=== PATIENT | male | born 1980 | race Caucasian/White ===

== ENCOUNTER 2021-11-06 04:28 | Emergency (ER) | payer OTHER ==
[~2021-11-06] VITALS: Ht 193 cm; Wt 142.0 kg
[2021-11-06] MEDS ORDERED: fentaNYL INJ 100 MCG/2 ML AMP IVP STA (04:34)
--- NOTE | 2021-11-06 04:36 | ED Lower Extremity ---
General Chief Complaint: Lower Extremity Stated Complaint: LEFT LEG PAIN Source: patient, EMS History of Present Illness Date Seen by Provider: Nov 06, 2021 Time Seen by Provider: 04:28 Initial Comments PT ARRIVES VIA EMS FROM WORK AT [employer] PT WAS DRIVING A FORKLIFT, AND HAD HIS LEFT LEG HANGING OFF THE SIDE OF THE FORKLIFT AND HIS LEG GOT CAUGHT ON SOMETHING, AND PT ACCIDENTALLY ACCELERATED THE FORKLIFT, AND FELT A SNAP/POP IN LEFT MID LOWER LEG AND HAD IMMEDIATE PAIN TO HIS LEFT LOWER LEG. NO OPEN WOUNDS DID NOT FALL OFF THE FORKLIFT OR HAVE ANY OTHER INJURY FROM THE INCIDENT NO PARESTHESIAS OR MOTOR DEFICITS. EMS HAVE SPLINTED THE LOWER LEG PRIOR TO ARRIVAL EMS GAVE 150 MCG FENTANYL PRIOR TO ARRIVAL PT IS NON-INSULIN DEPENDENT DIABETIC ON METFORMIN NO HISTORY OF PERIPHERAL NEUROPATHY OR PERIPHERAL VASCULAR DISEASE PT HAS HAD COVID-19 VACCINE X 2--SOMETIME LAST YEAR. HAS NOT HAD BOOSTER. DENIES ANY COVID-19 SYMPTOMS OR KNOWN SICK CONTACTS. LAST FOOD INTAKE 2100 LAST LIQUID INTAKE 0200 PCP: [facility] Allergies and Home Medications Allergies Coded Allergies: No Known Drug Allergies (Unverified , 11/06/21) Patient Home Medication List Home Medication List Reviewed: Yes Review of Systems Constitutional: no symptoms reported Respiratory: no symptoms reported Cardiovascular: no symptoms reported Gastrointestinal: no symptoms reported Genitourinary: no symptoms reported Musculoskeletal: see HPI Skin: no symptoms reported Psychiatric/Neurological: No Symptoms Reported Past Memuvgo-Caxqeb-Xlwved Hx Patient Social History Tobacco Use?: Yes Tobacco type used: Cigarettes Smoking Status: Former Smoker Substance use?: No Alcohol Use?: Yes Alcohol Frequency: Couple times a week Past Medical History Surgeries: Yes (LEFT KNEE SCOPE AGE 17) Orthopedic Respiratory: No Cardiac: No Neurological: No Genitourinary: No Gastrointestinal: No Musculoskeletal: Yes (LEFT KNEE SCOPE AGE 17) Endocrine: Yes (OBESITY) Diabetes, Non-Insulin dep HEENT: No Cancer: No Psychosocial: No Integumentary: No Blood Disorders: No Physical Exam Vital Signs Vital Signs - First Documented 11/06/21 04:28 Temp 37.0 Pulse 109 Resp 18 B/P (MAP) 161/93 (115) Pulse Ox 96 O2 Delivery Room Air Capillary Refill : Height, Weight, BMI Height: '" Weight: lbs. oz. kg; BMI Method: General Appearance: WD/WN, no apparent distress, obese Cardiovascular: normal peripheral pulses, regular rate, rhythm, no murmur Respiratory: normal breath sounds Gastrointestinal: soft Hips: bilateral hip normal inspection Legs: right leg normal inspection; left leg other (TENDERNESS TO LEFT MID TIB- FIB AREA. DISTAL MOTOR/SENSORY/VASCULAR INTACT. ) Knees: bilateral knee normal inspection Ankles: bilateral ankle normal inspection Feet: bilateral foot normal inspection Neurologic/Tendon: normal sensation, normal motor functions, normal tendon functions Neurologic/Psychiatric: no motor/sensory deficits, alert, normal mood/affect, oriented x 3 Skin: normal color, warm/dry Procedures/Interventions Splinting and Joint Reduction : Pre-Proc Neuro Vasc Exam: normal Post-Proc Neuro Vasc Exam: normal Hand-Made Type: orthoglass Splint Application: Short Leg Progress/Results/Core Measures Results/Orders Lab Results Laboratory Tests Test 11/06/21 04:40 Range/Units White Blood Count 9.1 4.3-11.0 10^3/uL Red Blood Count 5.36 4.30-5.52 10^6/uL Hemoglobin 15.4 13.3-17.7 g/dL Hematocrit 47 40-54 % Mean Corpuscular Volume 87 80-99 fL Mean Corpuscular Hemoglobin 29 25-34 pg Mean Corpuscular Hemoglobin Concent 33 32-36 g/dL Red Cell Distribution Width 13.0 10.0-14.5 % Platelet Count 266 130-400 10^3/uL Mean Platelet Volume 9.9 9.0-12.2 fL Immature Granulocyte % (Auto) 1 % Neutrophils (%) (Auto) 64 42-75 % Lymphocytes (%) (Auto) 25 12-44 % Monocytes (%) (Auto) 7 0-12 % Eosinophils (%) (Auto) 3 0-10 % Basophils (%) (Auto) 1 0-10 % Neutrophils # (Auto) 5.8 1.8-7.8 10^3/uL Lymphocytes # (Auto) 2.3 1.0-4.0 10^3/uL Monocytes # (Auto) 0.7 0.0-1.0 10^3/uL Eosinophils # (Auto) 0.3 0.0-0.3 10^3/uL Basophils # (Auto) 0.1 0.0-0.1 10^3/uL Immature Granulocyte # (Auto) 0.1 0.0-0.1 10^3/uL Prothrombin Time 13.1 12.2-14.7 SEC INR Comment 1.0 0.8-1.4 Activated Partial Thromboplast Time 23 L 24-35 SEC Sodium Level 137 135-145 MMOL/L Potassium Level 3.6 3.6-5.0 MMOL/L Chloride Level 101 98-107 MMOL/L Carbon Dioxide Level 16 L 21-32 MMOL/L Anion Gap 20 H 5-14 MMOL/L Blood Urea Nitrogen 20 H 7-18 MG/DL Creatinine 1.16 0.60-1.30 MG/DL Estimat Glomerular Filtration Rate 82 BUN/Creatinine Ratio 17 Glucose Level 311 H 70-105 MG/DL Calcium Level 9.1 8.5-10.1 MG/DL Corrected Calcium 9.3 8.5-10.1 MG/DL Total Bilirubin 0.4 0.1-1.0 MG/DL Aspartate Amino Transf (AST/SGOT) 28 5-34 U/L Alanine Aminotransferase (ALT/SGPT) 46 0-55 U/L Alkaline Phosphatase 93 40-136 U/L Total Protein 7.1 6.4-8.2 GM/DL Albumin 3.8 3.2-4.5 GM/DL My Orders Orders - MOHAN SERVIN DO Ed Iv/Invasive Line Start (11/06/21 04:34) Monitor-Rhythm Ecg Trace Only (11/06/21 04:34) Tibia/Fibula, Right, 2 Views (11/06/21 04:34) Cbc With Automated Diff (11/06/21 04:34) Comprehensive Metabolic Panel (11/06/21 04:34) Protime With Inr (11/06/21 04:34) Partial Thromboplastin Time (11/06/21 04:34) Fentanyl Inj (Sublimaze Injection) (11/06/21 04:34) Ed Iv/Invasive Line Start (11/06/21 05:06) Ns Iv 1000 Ml (Sodium Chloride 0.9%) (11/06/21 05:15) Morphine Injection (Morphine Injection (11/06/21 05:15) Medications Given in ED Vital Signs/I&O 11/06/21 11/06/21 04:28 06:03 Temp 37.0 36.5 Pulse 109 111 Resp 18 16 B/P (MAP) 161/93 (115) 163/82 Pulse Ox 96 96 O2 Delivery Room Air Room Air Progress Progress Note : Progress Note GIVEN FENTANYL 100 MCG WITH SOME IMPROVEMENT IN PAIN GIVEN MORPHINE 4 MG WITH BETTER PAIN CONTROL NO DETERIORATION IN PT'S CONDITION DURING ER STAY Diagnostic Imaging Comments XRAYS LEFT TIB-FIB--COMMINUTED FRACTURES OF SHAFT OF TIBIA AND FIBULA--PENDING RADIOLOGIST REVIEW Reviewed: Reviewed by Me Departure Communication (Admissions) 0502--SPOKE WITH DR. AVILES, ORTHOPEDIC SURGEON GENERAL UTILITY MAINTENANCE REPAIRER. ADVISES TO ADMIT AND HAVE MEDICINE SERVICES CONSULTED 05--DR. AVILES CALLED BACK, HE HAS REVIEWED XRAYS, AND ADVISES TRANSFER TO [facility], FRACTURE WILL LIKELY REQUIRE MORE SPECIALIZED ORTHOPEDIC SURGERY THAN HE CAN PROVIDE. 05--[facility]. 05--SPOKE WITH DR. SCOTT, ORTHOPEDIC SURGEON, ADVISES TO SEND PT TO [facility] ER 0529--SPOKE WITH DR. RUBIO, ER PHYSICIAN, ACCEPTS PT FOR TRANSFER. NO ADDITIONAL RECOMMENDATIONS AT THIS TIME. [facility] HAVE BEEN CLOUDED TO [facility]. [facility] HEALTH STAFF MEMBER CONTACTED FOR DRUG SCREEN. Impression Primary Impression: CLOSED COMMINUTED FRACTURES SHAFT LEFT TIBIA AND FIBULA Additional Impression: NIDDM Disposition: 02 XFER SHT-TRM HOSP Condition: Stable Transfer Transfer Reason: Exceeds level of care Transfer Facility: [facility] Method of Transfer: EMS MOHAN SERVIN DO Nov 06, 2021 04:36
[2021-11-06 04:48] LABS: BASOPHILS # (AUTO) 0.1 10^3/uL (0.0-0.1); BASOPHILS % (AUTO) 1 % (0-10); EOSINOPHILS # (AUTO) 0.3 10^3/uL (0.0-0.3); EOSINOPHILS % (AUTO) 3 % (0-10); HEMATOCRIT 47 % (40-54); HEMOGLOBIN 15.4 g/dL (13.3-17.7); LYMPHOCYTES # (AUTO) 2.3 10^3/uL (1.0-4.0); LYMPHOCYTES % (AUTO) 25 % (12-44); MEAN CORPUSCULAR HEMOGLOBIN 29 pg (25-34); MEAN CORPUSCULAR HGB CONC 33 g/dL (32-36); MEAN CORPUSCULAR VOLUME 87 fL (80-99); MEAN PLATELET VOLUME 9.9 fL (9.0-12.2); MONOCYTES # (AUTO) 0.7 10^3/uL (0.0-1.0); MONOCYTES % (AUTO) 7 % (0-12); NEUTROPHILS # (AUTO) 5.8 10^3/uL (1.8-7.8); NEUTROPHILS % (AUTO) 64 % (42-75); PLATELET COUNT 266 10^3/uL (130-400); WHITE BLOOD COUNT 9.1 10^3/uL (4.3-11.0)
[2021-11-06 05:04] LABS: ALBUMIN 3.8 GM/DL (3.2-4.5); POTASSIUM 3.6 MMOL/L (3.6-5.0); PROTHROMBIN TIME PATIENT 13.1 SEC (12.2-14.7)
[2021-11-06 05:06] LABS: CALCIUM 9.1 MG/DL (8.5-10.1)
[2021-11-06 05:07] LABS: TOTAL PROTEIN 7.1 GM/DL (6.4-8.2)
[2021-11-06 05:09] LABS: BILIRUBIN,TOTAL 0.4 MG/DL (0.1-1.0)
[2021-11-06 05:10] LABS: CREATININE SERUM 1.16 MG/DL (0.60-1.30)
[2021-11-06] MEDS ORDERED: morphine INJ 10 MG/ML 1ML (SYR OR VIAL) IVP ONE (05:15)
[2021-11-06] MEDS ORDERED: NS IV 1000 ML 1,000 ML IV SCH (05:15)
[2021-11-06 06:03] VITALS: BP 163/82
--- NOTE | 2021-11-06 07:11 | Diagnostic Imaging Report ---
INDICATION: Left leg injury AP and lateral views of the left leg are obtained. Comminuted spiral type fractures are present within the mid to distal diaphyses of left tibia and fibula. In addition, hairline fracture extends distally in the tibia to the articular surface of the plafonds. There is mild displacement at the site of major fracture. IMPRESSION: Comminuted spiral fractures involving the mid to distal diaphyses of left tibia and fibula. There is distal extension of fracture to the tibial plafonds. Dictated by: Dictated on workstation # [id number]
== END 2021-11-06 06:09 | disposition short-term general hospital (02) ==
LOC: EDUNIT# 04:33 → ER 04:34
DX: S82.252A Displaced comminuted fracture of shaft of left tibia, initial encounter for closed fracture (principal); S82.452A Displaced comminuted fracture of shaft of left fibula, initial encounter for closed fracture; E11.9 Type 2 diabetes mellitus without complications; E66.9 Obesity, unspecified; Z87.891 Personal history of nicotine dependence; Z79.84 Long term (current) use of oral hypoglycemic drugs; W23.1XXA Caught, crushed, jammed, or pinched between stationary objects, initial encounter
CPT/HCPCS: 29505; 36415; 73590; 80053; 85025; 85610; 85730; 93041

== ENCOUNTER 2022-09-10 17:58 | Emergency (ER) | payer OTHER ==
[~2022-09-10] VITALS: Ht 193 cm; Wt 145.1 kg
[2022-09-10] MEDS ORDERED: NITROGLYCERIN 0.4 MG SL TABS BTL 25'S SL PRN (18:15)
[2022-09-10] MEDS ORDERED: ONDANSETRON 4 MG/2 ML (SDV) Z0FRAN IVP ONE (18:15)
[2022-09-10] MEDS ORDERED: ASPIRIN 81 MG CHEW (CHILDREN'S ASA) PO ONE (18:15)
--- NOTE | 2022-09-10 18:17 | ED Cardiac General ---
History of Present Illness General Chief Complaint: Chest Pain Stated Complaint: DIZZINESS, LIGHT HEADED, SLIGHT CHEST PAIN Source: patient, spouse History of Present Illness Date Seen by Provider: Sep 10, 2022 Time Seen by Provider: 18:02 Initial Comments PT ARRIVES VIA POV FROM HOME, NEEDS WHEELCHAIR ON ARRIVAL PT WOKE UP AT 1600 TODAY TO GO TO WORK ( WORKS NIGHTS), AND WAS A LITTLE DIZZY, THEN IT WENT AWAY. TOOK SHOWER AND THEN WENT INTO KITCHEN AND STARTED GETTING DIZZY, LIGHTHEADED, ROOM SPINNING, GOT NAUSEATED AND STARTED HAVING A LITTLE CHEST PAIN, BROKE OUT IN A SWEAT, FEELS SLIGHTLY SHORT OF BREATH GOT BETTER, THEN RETURNED SOON HE ARRIVED IN ER AND IS PRESENT ON ARRIVAL, THEN IS STARTING TO GET BETTER SOON HE IS ON THE ER COT. NO CHEST PAIN AT THIS TIME AND DIZZINESS IS GOING AWAY STILL NAUSEATED NO SYNCOPE NO PALPITATIONS NO ABDOMINAL PAIN NO BACK PAIN NO HEADACHE NO VISION CHANGES NO PARESTHESIAS OR MOTOR DEFICITS NO FEVER OR RECENT ILLNESS NO HISTORY OF SIMILAR PT HAS HISTORY OF HTN AND DIABETES, DID NOT CHECK BLOOD SUGAR, BUT BP WAS 112/70. MOTHER AGE 56 OF CHF PT HAS HAD COVID VACCINE X 2--IN 2020, NO FLU VACCINE PCP: DR. BUITRAGO AT [facility] Allergies and Home Medications Allergies Coded Allergies: No Known Drug Allergies (Unverified , 11/06/21) Patient Home Medication List Home Medication List Reviewed: Yes Review of Systems Review of Systems Constitutional: see HPI, diaphoresis, dizziness EENTM: No Symptoms Reported Respiratory: See HPI, Shortness of Air Cardiovascular: See HPI, Chest Pain; Denies Edema, Denies Irregular Heart Rate; Lightheadedness; Denies Palpitations, Denies Syncope Gastrointestinal: See HPI; Denies Abdominal Pain, Denies Diarrhea; Nausea; Denies Vomiting Genitourinary: No Symptoms Reported Musculoskeletal: no symptoms reported Skin: no symptoms reported Psychiatric/Neurological: No Symptoms Reported; Denies Headache Endocrine: No Symptoms Reported Hematologic/Lymphatic: No Symptoms Reported Past Gthkujs-Ipdjkd-Hvsbzx Hx Patient Social History Tobacco Use?: No Use of E-Cig and/or Vaping dev: No Substance use?: No Alcohol Use?: No Past Medical History Surgery/Hospitalization HX: NIDDM Surgeries: Yes (LEFT KNEE SCOPE AGE ; LEFT TIB FIB FRACTURE/ORIF WITH ARIELA) Orthopedic Respiratory: No Cardiac: Yes Hypertension Neurological: No Genitourinary: No Gastrointestinal: No Musculoskeletal: Yes (LEFT KNEE SCOPE AGE 17; LEFT TIB-FIB FX/ORIF WITH ARIELA) Fractures Endocrine: Yes (OBESITY) Diabetes, Non-Insulin dep HEENT: No Cancer: No Psychosocial: No Integumentary: No Blood Disorders: No Physical Exam Vital Signs Vital Signs - First Documented 09/10/22 18:07 Temp 36.0 Pulse 89 Resp 15 B/P (MAP) 150/119 (129) Pulse Ox 97 O2 Delivery Room Air Capillary Refill : Height, Weight, BMI Height: '" Weight: lbs. oz. kg; 38.00 BMI Method: General Appearance: No Apparent Distress, WD/WN, Obese Neck: Normal Inspection Respiratory: Normal Breath Sounds, No Accessory Muscle Use, No Respiratory Distress, Other (BUT APPEARS SLIGHTLY SHORT OF BREATH ON ARRIVAL) Cardiovascular: Regular Rate, Rhythm, No Edema, No JVD, No Murmur, Normal Peripheral Pulses Gastrointestinal: Normal Bowel Sounds, No Pulsatile Mass, Non Tender, Soft Extremity: Normal Capillary Refill, Normal Inspection, Normal Range of Motion, Non Tender, No Calf Tenderness, No Pedal Edema Neurologic/Psychiatric: Alert, Oriented x3, No Motor/Sensory Deficits, Normal Mood/Affect Skin: Normal Color, Damp Progress/Results/Core Measures Results/Orders Lab Results Laboratory Tests Test 09/10/22 18:08 09/10/22 18:10 09/10/22 18:11 09/10/22 20:40 Range/Units White Blood Count 8.0 4.3-11.0 10^3/uL Red Blood Count 5.32 4.30-5.52 10^6/uL Hemoglobin 15.3 13.3-17.7 g/dL Hematocrit 45 40-54 % Mean Corpuscular Volume 85 80-99 fL Mean Corpuscular Hemoglobin 29 25-34 pg Mean Corpuscular Hemoglobin Concent 34 32-36 g/dL Red Cell Distribution Width 13.1 10.0-14.5 % Platelet Count 311 130-400 10^3/uL Mean Platelet Volume 9.6 9.0-12.2 fL Immature Granulocyte % (Auto) 0 % Neutrophils (%) (Auto) 61 42-75 % Lymphocytes (%) (Auto) 28 12-44 % Monocytes (%) (Auto) 7 0-12 % Eosinophils (%) (Auto) 4 0-10 % Basophils (%) (Auto) 1 0-10 % Neutrophils # (Auto) 4.8 1.8-7.8 10^3/uL Lymphocytes # (Auto) 2.2 1.0-4.0 10^3/uL Monocytes # (Auto) 0.5 0.0-1.0 10^3/uL Eosinophils # (Auto) 0.3 0.0-0.3 10^3/uL Basophils # (Auto) 0.0 0.0-0.1 10^3/uL Immature Granulocyte # (Auto) 0.0 0.0-0.1 10^3/uL Prothrombin Time 13.5 12.2-14.7 SEC INR Comment 1.0 0.8-1.4 Activated Partial Thromboplast Time 28 24-35 SEC D-Dimer <= 0.27 0.00-0.49 UG/ML Sodium Level 137 135-145 MMOL/L Potassium Level 4.0 3.6-5.0 MMOL/L Chloride Level 106 98-107 MMOL/L Carbon Dioxide Level 20 L 21-32 MMOL/L Anion Gap 11 5-14 MMOL/L Blood Urea Nitrogen 17 7-18 MG/DL Creatinine 0.88 0.60-1.30 MG/DL Estimat Glomerular Filtration Rate 111 BUN/Creatinine Ratio 19 Glucose Level 115 H 70-105 MG/DL Calcium Level 9.3 8.5-10.1 MG/DL Corrected Calcium 9.2 8.5-10.1 MG/DL Magnesium Level 2.3 1.6-2.4 MG/DL Total Bilirubin 0.5 0.1-1.0 MG/DL Aspartate Amino Transf (AST/SGOT) 34 5-34 U/L Alanine Aminotransferase (ALT/SGPT) 59 H 0-55 U/L Alkaline Phosphatase 73 40-136 U/L Total Creatine Kinase 268 H 30-200 U/L Creatine Kinase MB 3.5 <6.6 NG/ML Myoglobin 60.6 10.0-92.0 NG/ML Troponin I < 0.028 < 0.028 <0.028 NG/ML B-Type Natriuretic Peptide < 10.0 <100.0 PG/ML Total Protein 7.4 6.4-8.2 GM/DL Albumin 4.1 3.2-4.5 GM/DL Amylase Level 68 25-125 U/L Lipase 42 8-78 U/L Influenza Type A (RT-PCR) Not Detected Not Detecte Influenza Type B (RT-PCR) Not Detected Not Detecte SARS-CoV-2 RNA (RT-PCR) Not Detected Not Detecte Glucometer 113 H 70-110 MG/DL My Orders Orders - MOHAN SERVIN DO Accucheck Stat ONCE (09/10/22 18:04) Ed Iv/Invasive Line Start (09/10/22 18:04) Ekg Tracing (09/10/22 18:04) O2 (09/10/22 18:04) Monitor-Rhythm Ecg Trace Only (09/10/22 18:04) Cbc With Automated Diff (09/10/22 18:04) Magnesium (09/10/22 18:04) Chest 1 View, Ap/Pa Only (09/10/22 18:04) Ekg Tracing (09/10/22 18:04) Comprehensive Metabolic Panel (09/10/22 18:04) Myoglobin Serum (09/10/22 18:04) Protime With Inr (09/10/22 18:04) Partial Thromboplastin Time (09/10/22 18:04) O2 (09/10/22 18:04) Ed Iv/Invasive Line Start (09/10/22 18:04) Creatine Kinase (09/10/22 18:04) Creatine Kinase Mb (09/10/22 18:04) Lipase (09/10/22 18:04) Amylase (09/10/22 18:04) Bnp [place] (09/10/22 18:04) Fibrin Degradation Products (09/10/22 18:04) Troponin I Saeid (09/10/22 18:04) Nitroglycerin 0.4 Mg Btl 25's (Nitrostat (09/10/22 18:15) Aspirin Chewable Tablet (Baby Aspirin Ch (09/10/22 18:15) Covid 19 Inhouse Test (09/10/22 18:04) Influenza A And B By Pcr (09/10/22 18:04) Isolation Central Supply Req (09/10/22 18:04) Ondansetron Injection (Zofran Injectio (09/10/22 18:15) Ekg Tracing (2/2/23 20:38) Troponin I Saeid (09/10/22 20:38) Medications Given in ED Current Medications Medications Dose Ordered Sig/Kelsie Route Start Time Stop Time Status Last Admin Dose Admin Aspirin 324 mg ONCE ONCE PO 09/10/22 18:15 09/10/22 18:16 DC 09/10/22 18:14 324 MG Ondansetron HCl 8 mg ONCE ONCE IVP 09/10/22 18:15 09/10/22 18:16 DC 09/10/22 18:14 8 MG Vital Signs/I&O 09/10/22 18:07 Temp 36.0 Pulse 89 Resp 15 B/P (MAP) 150/119 (129) Pulse Ox 97 O2 Delivery Room Air Progress Progress Note : Progress Note COVID AND FLU TESTING DONE ACCUCHECK 113 ON ARRIVAL GIVEN : -ASPIRIN -ZOFRAN CHEST PAIN AND DIZZINESS ARE RESOLVING SOON HE IS PLACED ON ER COT. 1899--PT REMAINS SYMPTOM-FREE. LAB IS UNREMARKABLE, IS EKG AND CXR. WILL DO 3 HOUR REPEAT TROPONIN AND EKG. 2044--PT REMAINS SYMPTOM-FREE, VITALS STABLE. REPEAT EKG AND TROPONIN ORDERED. 2114--PT REMAINS SYMPTOM-FREE, VITALS STABLE, REPEAT EKG AND TROPONIN ARE UNCHANGED / NORMAL. PT WALKS OUT OF ER WITHOUT DIFFICULTY, AND REMAINS SYMPTOM-FREE REVIEWED ALL TEST RESULTS, ANTICIPATED COURSE, NEED FOR FOLLOW UP AND RETURN PRECAUTIONS REVIEWED PREVIOUS RECORDS, ONLY VISIT WAS 10/2021 FOR LEFT LEG INJURY. Initial ECG Impression Date: Sep 10, 2022 Initial ECG Impression Time: 18:05 Initial ECG Rate: 85 Initial ECG Rhythm: Normal Sinus Initial ECG Comparisson: No Previous ECG Available Comment INTEPRETED BY ME EKG : EKG Time: 20:51 Rate: 57 Rhythm: Normal Sinus ECG Comparisson: Unchanged Diagnostic Imaging Comments CXR--PER RADIOLOGIST REPORT AT 1835 FINDINGS: Single frontal view of the chest demonstrates normal heart size and pulmonary vascularity. The lungs are well aerated and clear. No large pleural effusion or pneumothorax is seen. The visualized osseous structures show no acute abnormalities. IMPRESSION: 1. No acute cardiopulmonary process. Reviewed: Reviewed by Me Departure Impression Primary Impression: Chest pain Additional Impressions: TRANSIENT DIZZINESS NIDDM HTN (hypertension) Disposition: HOME, SELF-CARE Condition: Improved Departure-Patient Inst. Decision time for Depature: 21:19 Referrals: [facility] (PCP/Family) Primary Care Physician Patient Instructions: Chest Pain (DC), Dizziness, Adult ED Add. Discharge Instructions: HOME, REST LOTS OF FLUIDS SLOW POSITION CHANGES CONTINUE YOUR REGULAR MEDICATIONS PRESCRIBED RETURN TO ER IF ANY OF YOUR SYMPTOMS RETURN. FOLLOW UP WITH [facility] TOMORROW FOR FURTHER CARE All discharge instructions reviewed with patient and/or family. Voiced understanding. Work/School Note: Work Release Form Date Seen in the Emergency Department: Sep 10, 2022 Restrictions: Need Release from Doctor MOHAN SERVIN DO Sep 10, 2022 18:17
[2022-09-10 18:18] LABS: BASOPHILS % (AUTO) 1 % (0-10); EOSINOPHILS # (AUTO) 0.3 10^3/uL (0.0-0.3); EOSINOPHILS % (AUTO) 4 % (0-10); HEMATOCRIT 45 % (40-54); HEMOGLOBIN 15.3 g/dL (13.3-17.7); LYMPHOCYTES # (AUTO) 2.2 10^3/uL (1.0-4.0); LYMPHOCYTES % (AUTO) 28 % (12-44); MEAN CORPUSCULAR HEMOGLOBIN 29 pg (25-34); MEAN CORPUSCULAR HGB CONC 34 g/dL (32-36); MEAN CORPUSCULAR VOLUME 85 fL (80-99); MEAN PLATELET VOLUME 9.6 fL (9.0-12.2); MONOCYTES # (AUTO) 0.5 10^3/uL (0.0-1.0); MONOCYTES % (AUTO) 7 % (0-12); NEUTROPHILS # (AUTO) 4.8 10^3/uL (1.8-7.8); NEUTROPHILS % (AUTO) 61 % (42-75); PLATELET COUNT 311 10^3/uL (130-400)
--- NOTE | 2022-09-10 18:32 | Diagnostic Imaging Report ---
INDICATION: Chest pain. COMPARISON: None. FINDINGS: Single frontal view of the chest demonstrates normal heart size and pulmonary vascularity. The lungs are well aerated and clear. No large pleural effusion or pneumothorax is seen. The visualized osseous structures show no acute abnormalities. IMPRESSION: 1. No acute cardiopulmonary process. Dictated by: Dictated on workstation # [id number]
[2022-09-10 18:35] LABS: ALBUMIN 4.1 GM/DL (3.2-4.5); PROTHROMBIN TIME PATIENT 13.5 SEC (12.2-14.7)
[2022-09-10 18:36] LABS: CALCIUM 9.3 MG/DL (8.5-10.1)
[2022-09-10 18:38] LABS: TOTAL PROTEIN 7.4 GM/DL (6.4-8.2)
[2022-09-10 18:39] LABS: BILIRUBIN,TOTAL 0.5 MG/DL (0.1-1.0)
[2022-09-10 18:41] LABS: CREATININE SERUM 0.88 MG/DL (0.60-1.30)
[2022-09-10 18:44] LABS: MAGNESIUM 2.3 MG/DL (1.6-2.4)
[2022-09-10 18:53] LABS: CREATINE KINASE MB 3.5 NG/ML (<6.6)
[2022-09-10 21:30] VITALS: BP 109/69
== END 2022-09-10 21:32 | disposition home or self-care (01) ==
LOC: EDUNIT# 17:58 → ER 17:59
DX: R07.9 Chest pain, unspecified (principal); R42 Dizziness and giddiness; E11.9 Type 2 diabetes mellitus without complications; I10 Essential (primary) hypertension; E66.9 Obesity, unspecified; Z68.38 Body mass index [BMI] 38.0-38.9, adult; Z20.822 Contact with and (suspected) exposure to COVID-19
CPT/HCPCS: 36415; 71045; 80053; 82150; 82550; 82553; 82947; 83690; 83735; 83874; 83880; 84484; 85025; 85379; 85610; 85730; 87636; 93005; 93041